=== PATIENT | male | born 1955 | race Caucasian/White ===

== ENCOUNTER 2016-11-07 20:08 | Emergency (ER) | payer OTHER ==
--- NOTE | 2016-11-07 20:05 | EDPHY ---
HPI/HX/ROS/PE/MDM Narrative: CHIEF COMPLAINT: Syncope HPI: This patient is a 61-year-old male who presents to the Emergency Department via EMS following a syncopal episode while at dinner at [employer] today. He has been taking up to 600mg Niacin to treat hypercholesterolemia over the past month. He reports intermittent mild flushing associated with the medication. Today, while at dinner, he took two 300mg Niacin and subsequently felt acutely flushed and lightheaded. He reports that he was eating spicy seafood and drank two glasses of wine; he believes this exacerbated the sensation. He walked to the bathroom when he lost consciousness. His caught him as he collapsed. He denies LOC or trauma. At time of presentation, he has no complaints and states that he does not want to be in the ED. He denies lightheadedness, heart palpitations, chest pain, or flushing. No additional pertinent medical history. REVIEW OF SYSTEMS: Aside from elements discussed in the HPI, a comprehensive 10-point review of systems was reviewed and is negative. PMH: Genetic hypercholesterolemia. SOCIAL HISTORY: PHYSICAL EXAM: General:Patient is alert, in no acute distress. ENT:Eyes are normal to inspection. ENT inspection normal. Neck: Normal inspection. Full range of motion. Respiratory:No respiratory distress. Breath sounds normal bilaterally. Cardiovascular: Regular rate and rhythm. Strong peripheral pulses. Normal cap refill. Abdomen:The abdomen is nontender to palpation. There are no peritoneal signs. There are normal bowel sounds. Back: Normal to inspection. No tenderness to palpation. Skin: Normal color. No rash. Warm and dry. Extremities: Normal appearance. Full range of motion. Neuro: Oriented x3. Normal motor function. Normal sensory function. ED Course: 2006: Took EMS report at bedside: BP 100/62, sinus bradycardia with HR 54, respiratory rate 16, 02 sat 98% on RA. BGL 88. 61-year-old male presents following an acute syncopal episode tonight while at dinner. He reports taking two 300mg Niacin supplements and drinking two glasses of wine preceding the event. There was no trauma secondary to the incident. He is well-appearing, alert, with normal vitals at time of arrival. No significant exam findings. Will proceed with labs, EKG. IV established. 1L IV NS administered. Labs obtained and are unremarkable. 2113: On reevaluation, the patient is asymptomatic. He wishes to go home. I discussed lab results with him as well as my suspicion that his syncopal episode was precipitated by use of Niacin in conjunction with heat and alcohol intake. He understands that flushing is a side effect with Niacin use and agrees to follow-up with his primary care provider for further evaluation. He will be discharged home in good condition with customary return precautions. - Data Points Laboratory Results: Laboratory Results 11/07/16 20:10 11/07/16 20:10 11/07/16 11/07/16 20:10 20:10 WBC 8.36 10^3/uL 10^3/uL (3.80-9.50) RBC 4.70 10^6/uL 10^6/uL (4.40-6.38) Hgb 14.7 g/dL g/dL (13.7-17.5) Hct 42.0 % % (40.0-51.0) MCV 89.4 fL fL (81.5-99.8) MCH 31.3 pg pg (27.9-34.1) MCHC 35.0 g/dL g/dL (32.4-36.7) RDW 12.9 % % (11.5-15.2) Plt Count 240 10^3/uL 10^3/uL (150-400) MPV 10.1 fL fL (8.7-11.7) Neut % (Auto) 46.7 % % (39.3-74.2) Lymph % (Auto) 46.2 % H % (15.0-45.0) Harris % (Auto) 5.6 % % (4.5-13.0) Eos % (Auto) 1.0 % % (0.6-7.6) Baso % (Auto) 0.1 % L % (0.3-1.7) Nucleat RBC Rel Count 0.0 % % (0.0-0.2) Absolute Neuts (auto) 3.91 10^3/uL 10^3/uL (1.70-6.50) Absolute Lymphs (auto) 3.86 10^3/uL H 10^3/uL (1.00-3.00) Absolute Monos (auto) 0.47 10^3/uL 10^3/uL (0.30-0.80) Absolute Eos (auto) 0.08 10^3/uL 10^3/uL (0.03-0.40) Absolute Basos (auto) 0.01 10^3/uL L 10^3/uL (0.02-0.10) Absolute Nucleated RBC 0.00 10^3/uL 10^3/uL (0-0.01) Immature Gran % 0.4 % % (0.0-1.1) Immature Gran # 0.03 10^3/uL 10^3/uL (0.00-0.10) Sodium 139 mEq/L mEq/L (134-144) Potassium 3.7 mEq/L mEq/L (3.5-5.2) Chloride 105 mEq/L mEq/L (97-110) Carbon Dioxide 20 mEq/l L mEq/l (22-31) Anion Gap 14 mEq/L mEq/L (8-16) BUN 19 mg/dL mg/dL (7-23) Creatinine 1.0 mg/dL mg/dL (0.7-1.3) Estimated GFR > 60 Glucose 111 mg/dL H mg/dL (70-100) Calcium 10.5 mg/dL H mg/dL (8.5-10.4) Troponin I < 0.012 ng/mL ng/mL (0-0.034) Medications Given: Discontinued Medications Sodium Chloride (Ns) 1,000 mls @ 0 mls/hr IV ONCE ONE; Wide Open PRN Reason: Protocol Stop: 11/07/16 20:18 Last Admin: 11/07/16 20:22 Dose: 1,000 mls General Initial Vital Signs: Initial Vital Signs Temperature (C) 36.4 C 11/07/16 20:10 Heart Rate 56 L 11/07/16 20:10 Respiratory Rate 16 11/07/16 20:10 Blood Pressure 105/76 11/07/16 20:10 O2 Sat (%) 100 11/07/16 20:10 O2 Delivery Mode Room Air Allergies/Adverse Reactions: No Known Allergies Allergy (Unverified 11/07/16 20:21) Home Medications: Medication Instructions Recorded Cholecalciferol (Vitamin D3) 1,000 unit PO 11/07/16 [Vitamin D3] Niacin 500 mg PO 11/07/16 [place]-3 Fatty Acids [Fish Oil] 300 mg PO 11/07/16 Departure - Departure Disposition: Home, Routine, Self-Care Clinical Impression: Syncope Qualifiers: Syncope type: unspecified Qualified Code(s): R55 - Syncope and collapse Medication reaction Qualifiers: Encounter type: initial encounter Qualified Code(s): T88.7XXA - Unspecified adverse effect of drug or medicament, initial encounter Condition: Good Instructions: Syncope (ED) Additional Instructions: 1. Follow-up with your primary care provider to discuss your supplements and medications. Please note that flushing is a side effect of Niacin supplementation. I suggest you take a different brand of Niacin. 2. Return to the Emergency Department with recurrent episodes of fainting, lightheadedness, flushing, confusion, chest pain, or for other serious concerns. Referrals: Darek Raymond MD [[facility] [place] Primary Care Provider] - As per Instructions Report Scribed for: Jc Marinelli Report Scribed by: Marla Pruett Date of Report: 11/07/16 Time of Report: 20:05 Physician Review and Approval Statement: Portions of this note were transcribed by an ED scribe. I personally performed the history, physical exam, and medical decision making; and confirm the accuracy of the information in the transcribed note.
[2016-11-07] MEDS ORDERED: NS 1,000 ML IV ONE (20:17)
[2016-11-07 20:21] VITALS: RESP 16; TEMP 97.5
[2016-11-07 20:26] LABS: % IMMATURE GRANULYOCYTES 0.4 % (0.0-1.1); ABSOLUTE IMMATURE GRANULOCYTES 0.03 10^3/uL (0.00-0.10); ADD DIFF? NO; ADD MORPH? NO; ADD SCAN? NO; ATYPICAL LYMPHOCYTE FLAG 10 (0-99); FRAGMENT RBC FLAG 0 (0-99); HEMOGLOBIN 14.7 g/dL (13.7-17.5); LEFT SHIFT FLG 0 (0-99); LIPEMIA HEMOLYSIS FLAG 90 (0-99); MEAN CELL HEMOGLOBIN 31.3 pg (27.9-34.1); MEAN CELL VOLUME 89.4 fL (81.5-99.8); MEAN PLATELET VOLUME 10.1 fL (8.7-11.7); PLATELET CLUMPS FLAG 10 (0-99); PLATELET COUNT 240 10^3/uL (150-400); RED CELL DISTRIBUTION WIDTH 12.9 % (11.5-15.2)
--- NOTE | 2016-11-07 20:31 | CPEKG ---
Heart Rate: 54 RR Interval: 1111 P-R Interval: 216 QRSD Interval: 96 QT Interval: 500 QTC Interval: 474 P Cary: 40 QRS Cary: 60 T Wave Cary: 25 EKG Severity - NORMAL ECG - EKG Impression: SINUS RHYTHM Electronically Signed By: Bret Adams 07-Nov-2016 20:46:08
[2016-11-07 20:33] LABS: POTASSIUM 3.7 mEq/L (3.5-5.2)
[2016-11-07 20:34] LABS: ANION GAP 14 mEq/L (8-16); CALCIUM 10.5 mg/dL (8.5-10.4); CARBON DIOXIDE 20 mEq/l (22-31); CHLORIDE 105 mEq/L (97-110); GLOMERULAR FILTRATION RATE > 60; GLUCOSE 111 mg/dL (70-100); SODIUM 139 mEq/L (134-144)
[2016-11-07 20:46] LABS: TROPONIN I < 0.012 ng/mL (0-0.034)
[2016-11-07 21:31] VITALS: BP 126/76; PULSE 71; O2SAT 98
== END 2016-11-07 21:31 | disposition home or self-care (01) ==
LOC: EDUNIT#
DX: R55 Syncope and collapse (principal); E86.9 Volume depletion, unspecified; T46.7X5A Adverse effect of peripheral vasodilators, initial encounter